=== PATIENT | male | born 1945 | race Two or more races ===

== ENCOUNTER 2024-12-15 11:30 | Inpatient (IN) | payer OTHER ==
[~2024-12-15] VITALS: Ht 274.3 cm; Wt 68.0 kg
[2024-12-15 13:42] VITALS: BP 157/73
[2024-12-15] MEDS ORDERED: COZAAR50 MG PO (13:45)
[2024-12-22] MEDS ORDERED: METRONIDAZOLE/SODIUM CHLORIDE 500 MG/100 ML PIGGYBACK IV ONE (08:24)
[2024-12-22] MEDS ORDERED: CEFTRIAXONE SODIUM 2,000 MG VIAL ONE (08:24)
[2024-12-22] MEDS ORDERED: BUPIVACAINE HCL/MPF 0.5% 30ML VIAL ONE (08:47)
[2024-12-22] MEDS ORDERED: LIDOCAINE HCL 1%/EPINEPHRINE 20ML VIAL IJ ONE (08:47)
[2024-12-22] MEDS ORDERED: SUGAMMADEX SODIUM 200 MG/2 ML VIAL IV ONE (10:22)
[2024-12-22] MEDS ORDERED: DEXTROSE 50 % IN WATER 0.5 G/ML DISP.SYRIN IV PRN (12:45)
[2024-12-22] MEDS ORDERED: OxyCODONE HCL 5 MG TABLET (ROXICODONE) PO PRN (12:45)
[2024-12-22] MEDS ORDERED: MORPHINE SULFATE 4 MG/ML CARTRIDGE IV PRN (12:45)
[2024-12-22] MEDS ORDERED: 0.9 % SODIUM CHLORIDE 1,000 ML IV SCH (12:45)
[2024-12-22] MEDS ORDERED: ONDANSETRON HCL 2 MG/ML VIAL IV PRN (12:45)
[2024-12-22] MEDS ORDERED: HYOSCYAMINE SULFATE 0.125 MG TAB.SUBL SL SCH (13:00)
[2024-12-22 13:28] LABS: BASO % 0.4 % (0.1-1.2); EOS # 0.02 (0.04-0.54); EOS % 0.3 % (0.7-7.0); LYMPH # 1.20 (1.18-3.74); LYMPH % 15.4 % (19.3-53.1); MEAN PLATELET VOLUME 10.20 fl (9.4-12.4); MONO # 0.43 (0.24-0.82); MONO % 5.5 % (4.7-12.5); NEUT # 6.08 (1.56-6.13); NEUT % 77.9 % (34.0-71.1); RED CELL DISTRIBUTION WIDTH 13.8 % (11.6-14.4)
[2024-12-22] MEDS ORDERED: ENALAPRILAT DIHYDRATE 1.25 MG/ML VIAL IV ONE (13:30)
[2024-12-22] MEDS ORDERED: ONDANSETRON HCL 2 MG/ML VIAL IV ONE (13:35)
[2024-12-22] MEDS ORDERED: ENALAPRILAT DIHYDRATE 1.25 MG/ML VIAL IV PRN (14:00)
[2024-12-22] MEDS ORDERED: ACETAMINOPHEN 500 MG GEL..CAP PO SCH (14:00)
[2024-12-22 14:46] LABS: BUN CREA RATIO 15.0 (7.0-25.0); CREATININE SERUM 0.92 mg/dL (0.70-1.30); GFR 79.36; GLUCOSE FASTING 149.0 mg/dL (65-100); OSMOLALITY SERUM 283.0 MOSM/KG (275-295)
[2024-12-22] MEDS ORDERED: LOSARTAN POTASSIUM 50 MG TABLET PO STA (15:44)
[2024-12-22] MEDS ORDERED: GABAPENTIN 300 MG CAPSULE PO ONE (16:06)
[2024-12-22] MEDS ORDERED: HYOSCYAMINE SULFATE 0.125 MG TAB.SUBL ONE (16:06)
[2024-12-22] MEDS ORDERED: GABAPENTIN 300 MG CAPSULE PO SCH (17:00)
[2024-12-22] MEDS ORDERED: METRONIDAZOLE/SODIUM CHLORIDE 500 MG/100 ML PIGGYBACK IV SCH (17:00)
[2024-12-22 17:48] VITALS: BP 157/73; O2SAT 97
[2024-12-22] MEDS ORDERED: FAMOTIDINE/PF 20 MG/2 ML VIAL IV PUSH SCH (21:00)
[2024-12-22] MEDS ORDERED: CELECOXIB 200 MG CAPSULE PO SCH (21:00)
[2024-12-23 01:08] VITALS: BP 155/75; O2SAT 97
[2024-12-23 06:15] LABS: BASO % 0.2 % (0.1-1.2); EOS # 0.00 (0.04-0.54); EOS % 0.0 % (0.7-7.0); LYMPH # 1.23 (1.18-3.74); LYMPH % 13.8 % (19.3-53.1); MEAN PLATELET VOLUME 10.60 fl (9.4-12.4); MONO # 0.72 (0.24-0.82); MONO % 8.1 % (4.7-12.5); NEUT # 6.92 (1.56-6.13); NEUT % 77.7 % (34.0-71.1); RED CELL DISTRIBUTION WIDTH 13.2 % (11.6-14.4)
[2024-12-23 07:02] LABS: BUN CREA RATIO 11.0 (7.0-25.0); CREATININE SERUM 0.95 mg/dL (0.70-1.30); GFR 76.48; GLUCOSE FASTING 113.0 mg/dL (65-100); OSMOLALITY SERUM 281.0 MOSM/KG (275-295)
[2024-12-23] MEDS ORDERED: LOSARTAN POTASSIUM 50 MG TABLET PO SCH (09:00)
[2024-12-23] MEDS ORDERED: SODIUM CHLORIDE 0.45 % 1,000 ML IV SCH (10:00)
[2024-12-23] MEDS ORDERED: ENOXAPARIN SODIUM 40 MG/0.4 ML SYRINGE SUBCUTANEO SCH (17:00)
[2024-12-24 00:30] VITALS: BP 147/88; O2SAT 98
[2024-12-24 08:07] LABS: BASO % 0.4 % (0.1-1.2); EOS # 0.10 (0.04-0.54); EOS % 0.9 % (0.7-7.0); LYMPH # 1.55 (1.18-3.74); LYMPH % 14.1 % (19.3-53.1); MEAN PLATELET VOLUME 11.00 fl (9.4-12.4); MONO # 0.75 (0.24-0.82); MONO % 6.8 % (4.7-12.5); NEUT # 8.49 (1.56-6.13); NEUT % 77.5 % (34.0-71.1); RED CELL DISTRIBUTION WIDTH 13.4 % (11.6-14.4)
[2024-12-24 08:29] VITALS: BP 148/88; O2SAT 97
[2024-12-24 08:33] LABS: BUN CREA RATIO 23.0 (7.0-25.0); CREATININE SERUM 1.11 mg/dL (0.70-1.30); GFR 63.9; GLUCOSE FASTING 92.0 mg/dL (65-100); OSMOLALITY SERUM 280.0 MOSM/KG (275-295)
[2024-12-24] MEDS ORDERED: ENOXAPARIN SODIUM 40 MG/0.4 ML SYRINGE SUBCUTANEO SCH (09:00)
== END 2024-12-24 15:14 | disposition home or self-care (01) | DRG 331 ==
LOC: SURG 12-22 07:00 → O/R 12-22 08:00 → SURG 12-22 11:30 → SURH 12-23 17:48
PROVIDERS: Internal Medicine Geriatric Medicine; ADMIT Surgery; ATTEND Surgery
PROC: 07BB4ZZ Excision of Mesenteric Lymphatic, Percutaneous Endoscopic Approach (ICD-10-PCS; 2024-12-22)
PROC: 07BC4ZZ Excision of Pelvis Lymphatic, Percutaneous Endoscopic Approach (ICD-10-PCS; 2024-12-22)
PROC: 0DBL4ZZ Excision of Transverse Colon, Percutaneous Endoscopic Approach (ICD-10-PCS; 2024-12-22)
PROC: 0DTF4ZZ Resection of Right Large Intestine, Percutaneous Endoscopic Approach (ICD-10-PCS; principal; 2024-12-22 07:00)
DX: D12.0 Benign neoplasm of cecum (principal); D12.3 Benign neoplasm of transverse colon; K63.5 Polyp of colon; R59.0 Localized enlarged lymph nodes; I10 Essential (primary) hypertension